=== PATIENT | female | born 1980 | race Caucasian/White ===

== ENCOUNTER 2018-09-30 13:23 | Emergency (ER) | payer OTHER ==
[~2018-09-30] VITALS: Ht 152.4 cm; Wt 108.0 kg
[~2018-09-30 13:23] MED LIST: CEPHALEXIN500 MG PO; NAPROSYN500 MG OR; NAPROXEN375 MG OR; NO CURRENT MEDS; PENICILLN VK500 MG OR; PENICILLN VK500 MG PO; PRAVASTATIN10 MG PO; PRINIVIL5 MG PO; VOLTAREN - GENE75 MG PO
[2018-09-30] MEDS ORDERED: NORCO1 TA1 PO (13:35)
[2018-09-30] MEDS ORDERED: CLINDAMYCIN300 M1 PO (13:35)
[2018-09-30] MEDS ORDERED: ZOFRAN ODT4 MG PO (13:47)
[2018-09-30 13:52] VITALS: BP 109/73
== END 2018-09-30 13:52 | disposition home or self-care (01) ==
LOC: ED 13:23
DX: K52.9 Noninfective gastroenteritis and colitis, unspecified (principal); R11.2 Nausea with vomiting, unspecified

== ENCOUNTER 2019-07-09 | Emergency (ER) | payer OTHER ==
[~2019-07-09] MED LIST changes: +CLINDAMYCIN300 M1 PO; +NORCO1 TA1 PO; +ZOFRAN ODT4 MG PO
[2019-07-09 03:20] LABS: HEMATOCRIT 43.3 % (37.0-47.0); IMMATURE GRANULOCYTES 0.2 % (0.0-5.0); MEAN CELL VOLUME 78.7 fL CALC (80.0-100.0); MEAN CORPUSCULAR HGB 27.3 pG CALC (26.0-32.0); MEAN CORPUSCULAR HGB CONC 34.6 g/L CALC (32.0-36.0); NEUT# 4.6 thou/uL (2.00-7.15); RED BLOOD COUNT 5.5 mill/uL (4.20-5.60); RED CELL DISTRI WIDTH 13.2 % (11.5-15.5)
[2019-07-09 03:21] LABS: URINE BILIRUBIN - DIPSTICK NEGATIVE (NEGATIVE); URINE BLOOD DIPSTICK NEGATIVE (NEGATIVE); URINE COLOR YELLOW; URINE GLUCOSE - DIPSTICK NEGATIVE (NEGATIVE); URINE KETONE NEGATIVE (NEGATIVE); URINE LEUK ESTERASE NEGATIVE (NEGATIVE); URINE NITRITE - DIPSTICK NEGATIVE (Negative); URINE PROTEIN - DIPSTICK NEGATIVE (NEG-TRACE); URINE SPECIFIC GRAVITY 1.015; URINE UROBILINOGEN - DIPSTICK 0.2 E.U./dL (0.2)
[2019-07-09 03:32] LABS: ALBUMIN 4.2 g/dL (3.2-5.0); ALKALINE PHOSPHATASE 83 u/l (38-126); AMYLASE 44 u/l (30-110); ANION GAP 16 (6-22 (CALC)); BILIRUBIN, TOTAL 0.5 mg/dL (0.0-1.4); BUN 10 mg/dL (7-17); BUN/CREATININE RATIO 13 (12-20 (CALC)); CARBON DIOXIDE 23 mmol/l (22-30); CHLORIDE 102 mmol/l (95-108); CREATININE 0.7 mg/dL (0.5-1.0); GFR > 60 ML/MIN (>=60 (CALC)); GFR FOR AFR.AMER. > 60 ML/MIN (>=60 (CALC)); LIPASE 193 u/l (23-300); SGOT/AST 53 u/l (14-36); SODIUM 137 mmol/l (137-146)
[2019-07-09] MEDS ORDERED: IMODIUM2 MG PO (06:10)
== END 2019-07-09 06:29 | disposition home or self-care (01) ==
PROVIDERS: Emergency Medicine
DX: R19.7 Diarrhea, unspecified (principal); I10 Essential (primary) hypertension
CPT/HCPCS: Q9967

== ENCOUNTER 2019-08-21 22:15 | Observation (INO) | payer OTHER ==
[~2019-08-21] VITALS: Ht 149.9 cm; Wt 114.0 kg
[~2019-08-21 22:15] MED LIST changes: +IMODIUM2 MG PO
[2019-08-21] MEDS ORDERED: BL ASPIRIN325 MG PO (22:42)
[2019-08-21 23:37] LABS: URINE BILIRUBIN - DIPSTICK NEGATIVE (NEGATIVE); URINE BLOOD DIPSTICK NEGATIVE (NEGATIVE); URINE COLOR YELLOW; URINE GLUCOSE - DIPSTICK NEGATIVE (NEGATIVE); URINE KETONE NEGATIVE (NEGATIVE); URINE LEUK ESTERASE NEGATIVE (NEGATIVE); URINE NITRITE - DIPSTICK NEGATIVE (Negative); URINE PH 6.5 (4.5-8.0); URINE PROTEIN - DIPSTICK NEGATIVE (NEG-TRACE); URINE SPECIFIC GRAVITY 1.025; URINE UROBILINOGEN - DIPSTICK 0.2 E.U./dL (0.2)
[2019-08-21 23:45] LABS: HEMOGLOBIN 15.6 g/dl (12.0-16.0); IMMATURE GRANULOCYTES 0.2 % (0.0-5.0); MEAN CELL VOLUME 79.7 fL CALC (80.0-100.0); MEAN CORPUSCULAR HGB CONC 33.9 g/L CALC (32.0-36.0); NEUT# 4.74 thou/uL (2.00-7.15); RED BLOOD COUNT 5.77 mill/uL (4.20-5.60); RED CELL DISTRI WIDTH 13.2 % (11.5-15.5)
[2019-08-21 23:56] LABS: ALBUMIN 4.3 g/dL (3.2-5.0); ALKALINE PHOSPHATASE 79 u/l (38-126); ANION GAP 13 (6-22 (CALC)); BILIRUBIN, TOTAL 0.5 mg/dL (0.0-1.4); BUN 12 mg/dL (7-17); BUN/CREATININE RATIO 18 (12-20 (CALC)); CARBON DIOXIDE 26 mmol/l (22-30); CHLORIDE 100 mmol/l (95-108); CREATININE 0.7 mg/dL (0.5-1.0); GFR > 60 ML/MIN (>=60 (CALC)); GFR FOR AFR.AMER. > 60 ML/MIN (>=60 (CALC)); POTASSIUM 4.2 mmol/l (3.5-5.1); SGOT/AST 44 u/l (14-36); SODIUM 135 mmol/l (137-146)
[2019-08-22 00:08] LABS: MYOGLOBIN 42 ng/mL (0 - 62)
[2019-08-22 01:45] VITALS: BP 135/76
[2019-08-22 04:00] VITALS: BP 140/76
[2019-08-22 07:00] VITALS: BP 110/68
[2019-08-22 09:27] LABS: CHOLESTEROL HDL RATIO 7.7 (<4.4 (CALC))
[2019-08-22 09:35] VITALS: BP 129/75
[2019-08-22] MEDS ORDERED: LEVOTHYROXIN25 MC1 PO (10:23)
[2019-08-22] MEDS ORDERED: METFORMIN500 MG PO (10:23)
[2019-08-22] MEDS ORDERED: LIPITOR10 M1 PO (10:32)
== END 2019-08-22 10:55 | disposition home or self-care (01) ==
LOC: ED 22:15 → ED-I 23:24 → ED 23:24 → ED-I 23:26 → ED 08-22 00:52 → ICU 08-22 00:53
PROVIDERS: Emergency Medicine; Internal Medicine; ADMIT Internal Medicine; ATTEND Internal Medicine
DX: R07.89 Other chest pain (principal); I10 Essential (primary) hypertension; G47.33 Obstructive sleep apnea (adult) (pediatric); E11.9 Type 2 diabetes mellitus without complications; E66.9 Obesity, unspecified; Z68.43 Body mass index [BMI] 50.0-59.9, adult

== ENCOUNTER 2020-05-19 17:56 | Emergency (ER) | payer OTHER ==
[~2020-05-19] VITALS: Ht 149.9 cm; Wt 120.0 kg
[~2020-05-19 17:56] MED LIST changes: +BL ASPIRIN325 MG PO; +LEVOTHYROXIN25 MC1 PO; +LIPITOR10 M1 PO; +METFORMIN500 MG PO
[2020-05-19 18:10] VITALS: BP 127/82
== END 2020-05-19 19:57 | disposition home or self-care (01) ==
LOC: ED 17:56
DX: U07.1 COVID-19 (principal); I10 Essential (primary) hypertension

== ENCOUNTER 2021-04-03 22:09 | Emergency (ER) | payer OTHER ==
[~2021-04-03] VITALS: Ht 149.9 cm; Wt 115.0 kg
[2021-04-03] MEDS ORDERED: METFORMIN HYDR500 MG PO (22:54)
[2021-04-03] MEDS ORDERED: LEVOTHYROXIN25 MC1 PO (22:55)
[2021-04-03 23:00] VITALS: BP 118/74
== END 2021-04-03 23:04 | disposition home or self-care (01) ==
LOC: ED 22:09
DX: S61.411A Laceration without foreign body of right hand, initial encounter (principal); I10 Essential (primary) hypertension; E78.00 Pure hypercholesterolemia, unspecified; W26.8XXA Contact with other sharp object(s), not elsewhere classified, initial encounter; Y93.G3 Activity, cooking and baking; Y92.000 Kitchen of unspecified non-institutional (private) residence as the place of occurrence of the external cause

== ENCOUNTER 2022-09-02 22:26 | Emergency (ER) | payer OTHER ==
[~2022-09-02] VITALS: Ht 149.9 cm; Wt 113.0 kg
[~2022-09-02 22:26] MED LIST changes: +METFORMIN HYDR500 MG PO; +PROAIR HFA108 MCG/AC
[2022-09-02 23:14] VITALS: BP 120/73
[2022-09-02 23:15] VITALS: BP 113/59
[2022-09-02 23:49] LABS: URINE BILIRUBIN - DIPSTICK NEGATIVE (NEGATIVE); URINE BLOOD DIPSTICK NEGATIVE (NEGATIVE); URINE COLOR YELLOW; URINE GLUCOSE - DIPSTICK >=1000 mg/dL (NEGATIVE); URINE KETONE NEGATIVE (NEGATIVE); URINE LEUK ESTERASE NEGATIVE (NEGATIVE); URINE PROTEIN - DIPSTICK NEGATIVE (NEG-TRACE); URINE SPECIFIC GRAVITY 1.015; URINE UROBILINOGEN - DIPSTICK 0.2 E.U./dL (0.2)
[2022-09-02 23:54] LABS: URINE NITRITE - DIPSTICK NEGATIVE (Negative)
[2022-09-03] LABS: ANION GAP 13 (6-22 (CALC)); BUN 11 mg/dL (7-17); BUN/CREATININE RATIO 18 (12-20 (CALC)); CARBON DIOXIDE 26 mmol/l (22-30); CHLORIDE 98 mmol/l (95-108); CREATININE 0.6 mg/dL (0.5-1.0); GFR FOR AFR.AMER. > 60 ML/MIN (>=60 (CALC)); GFR OTHER RACES > 60 ML/MIN (>=60 (CALC)); SODIUM 133 mmol/l (137-146)
[2022-09-03] MEDS ORDERED: METFORMIN HCL1000 MG PO (00:17)
[2022-09-03] MEDS ORDERED: INVOKANA100 MG PO (00:17)
[2022-09-03 00:27] VITALS: BP 120/73
== END 2022-09-03 00:46 | disposition home or self-care (01) ==
LOC: ED 22:26
PROVIDERS: Family Medicine
DX: E11.65 Type 2 diabetes mellitus with hyperglycemia (principal); I10 Essential (primary) hypertension; Z79.84 Long term (current) use of oral hypoglycemic drugs

== ENCOUNTER 2022-11-11 21:25 | Observation (INO) | payer OTHER ==
[~2022-11-11] VITALS: Ht 149.9 cm; Wt 110.8 kg
[~2022-11-11 21:25] MED LIST changes: +INVOKANA100 MG PO; +METFORMIN HCL1000 MG PO
[2022-11-11 21:46] VITALS: BP 118/64
[2022-11-11 22:01] VITALS: BP 105/50
[2022-11-11 22:31] VITALS: BP 109/58
[2022-11-11 22:31] LABS: BASO% 0.5 % (0-3); EOS% 2.3 % (0-8); HEMATOCRIT 42.8 % (37.0-47.0); HEMOGLOBIN 14.3 g/dl (12.0-16.0); IMMATURE GRANULOCYTES 0.1 % (0.0-5.0); LYMPH% 35.8 % (15-41); MEAN CELL VOLUME 77.7 fL CALC (80.0-100.0); MEAN CORPUSCULAR HGB CONC 33.4 g/dL CAL (32.0-36.0); MONO% 6.1 % (2-13); NEUT# 5.03 thou/uL (2.00-7.15); NEUT% 55.2 % (42-76); RED BLOOD COUNT 5.51 mill/uL (4.20-5.60); RED CELL DISTRI WIDTH 13.3 % (11.5-15.5)
[2022-11-11 22:43] LABS: ALBUMIN 4.1 g/dL (3.2-5.0); ALKALINE PHOSPHATASE 72 u/l (38-126); ANION GAP 15 (6-22 (CALC)); BILIRUBIN, TOTAL 0.3 mg/dL (0.02-1.3); BUN 13 mg/dL (7-17); BUN/CREATININE RATIO 17 (12-20 (CALC)); CARBON DIOXIDE 23 mmol/l (22-30); CHLORIDE 102 mmol/l (95-108); CREATININE 0.8 mg/dL (0.5-1.0); GFR FOR AFR.AMER. > 60 ML/MIN (>=60 (CALC)); GFR OTHER RACES > 60 ML/MIN (>=60 (CALC)); SGOT/AST 31 u/l (14-36); SODIUM 136 mmol/l (137-146); TOTAL PROTEIN 6.9 g/dL (6.3-8.2)
[2022-11-11 23:01] VITALS: BP 102/43
[2022-11-11 23:50] VITALS: BP 107/61
[2022-11-12] VITALS: BP 117/63
[2022-11-12 00:41] VITALS: BP 134/63
[2022-11-12 07:40] VITALS: BP 111/66
[2022-11-12 11:17] VITALS: BP 78/37
[2022-11-12 11:22] VITALS: BP 120/69
[2022-11-12 11:38] LABS: CHOLESTEROL HDL RATIO 6.5 (<4.4 (CALC))
== END 2022-11-12 13:45 | disposition home or self-care (01) ==
LOC: ED 21:25 → ED-I 23:30 → ED 11-12 00:03 → MS2 11-12 00:04
PROVIDERS: Emergency Medicine; Internal Medicine; ADMIT Internal Medicine; ATTEND Internal Medicine
DX: R07.9 Chest pain, unspecified (principal); I10 Essential (primary) hypertension; E11.65 Type 2 diabetes mellitus with hyperglycemia; E66.9 Obesity, unspecified; E03.9 Hypothyroidism, unspecified; E78.5 Hyperlipidemia, unspecified; G47.30 Sleep apnea, unspecified; Z79.84 Long term (current) use of oral hypoglycemic drugs
CPT/HCPCS: G0378

== ENCOUNTER 2023-01-26 00:33 | Emergency (ER) | payer OTHER ==
[~2023-01-26] VITALS: Ht 149.9 cm; Wt 109.0 kg
[2023-01-26 01:02] VITALS: BP 113/58
[2023-01-26 01:45] LABS: BASO% 0.5 % (0-3); HEMATOCRIT 41.7 % (37.0-47.0); IMMATURE GRANULOCYTES 0.1 % (0.0-5.0); LYMPH% 23.7 % (15-41); MEAN CELL VOLUME 77.5 fL CALC (80.0-100.0); MEAN CORPUSCULAR HGB CONC 33.6 g/dL CAL (32.0-36.0); MONO% 10.7 % (2-13); NEUT# 4.88 thou/uL (2.00-7.15); RED BLOOD COUNT 5.38 mill/uL (4.20-5.60)
[2023-01-26 01:48] LABS: HCG SERUM/URINE (NEG/POS) NEGATIVE (NEGATIVE)
[2023-01-26 01:57] LABS: ALBUMIN 3.8 g/dL (3.2-5.0); ALKALINE PHOSPHATASE 75 u/l (38-126); ANION GAP 15 (6-22 (CALC)); BUN 9 mg/dL (7-17); BUN/CREATININE RATIO 12 (12-20 (CALC)); CARBON DIOXIDE 21 mmol/l (22-30); CHLORIDE 105 mmol/l (95-108); CREATININE 0.7 mg/dL (0.5-1.0); GFR FOR AFR.AMER. > 60 ML/MIN (>=60 (CALC)); GFR OTHER RACES > 60 ML/MIN (>=60 (CALC)); POTASSIUM 3.9 mmol/l (3.5-5.1); SGOT/AST 39 u/l (14-36); SODIUM 136 mmol/l (137-146)
[2023-01-26 01:58] LABS: BILIRUBIN, TOTAL 0.5 mg/dL (0.02-1.3)
[2023-01-26] MEDS ORDERED: PAXLOVID PO (02:51)
[2023-01-26 03:05] VITALS: BP 110/60
== END 2023-01-26 03:20 | disposition home or self-care (01) ==
LOC: ED 00:33
PROVIDERS: Family Medicine
DX: U07.1 COVID-19 (principal); R50.9 Fever, unspecified; R09.81 Nasal congestion; R07.81 Pleurodynia; I10 Essential (primary) hypertension; E11.9 Type 2 diabetes mellitus without complications; E03.9 Hypothyroidism, unspecified; E78.00 Pure hypercholesterolemia, unspecified; Z79.84 Long term (current) use of oral hypoglycemic drugs

== ENCOUNTER 2024-02-20 12:43 | Emergency (ER) | payer SELFPAY ==
[~2024-02-20] VITALS: Ht 149.9 cm; Wt 100.0 kg
[~2024-02-20 12:43] MED LIST changes: +ACYCLOVIR800 MG PO; +ANTI-DIARRHE2 M1 PO; +CORTISPORIN OTI10 ML AD; +PAXLOVID PO; +PROMETHAZINE HY25 M1 PO; +ZOFRAN4 MG/TAB PO
[2024-02-20 12:54] VITALS: BP 143/86
[2024-02-20 13:00] VITALS: BP 126/77
[2024-02-20 13:15] VITALS: BP 121/67
[2024-02-20] MEDS ORDERED: PROAIR RES108 MCG/AC PO (13:23)
[2024-02-20 13:30] VITALS: BP 133/77
[2024-02-20 13:45] VITALS: BP 133/78
[2024-02-20 14:10] VITALS: BP 133/78
== END 2024-02-20 14:12 | disposition home or self-care (01) | DRG 179 ==
LOC: ED 12:43
DX: U07.1 COVID-19 (principal); R50.9 Fever, unspecified; R05.9 Cough, unspecified; R51.9 Headache, unspecified; M79.10 Myalgia, unspecified site; R09.81 Nasal congestion; I10 Essential (primary) hypertension; E11.9 Type 2 diabetes mellitus without complications; E03.9 Hypothyroidism, unspecified; E78.00 Pure hypercholesterolemia, unspecified; Z79.84 Long term (current) use of oral hypoglycemic drugs

== ENCOUNTER 2024-06-28 19:36 | Emergency (ER) | payer SELFPAY ==
[2024-06-28] VITALS (7 sets, daily range): BP systolic 86–123; BP diastolic 48–71
[~2024-06-28] VITALS: Ht 149.9 cm; Wt 108.0 kg
[~2024-06-28 19:36] MED LIST changes: +METRONIDAZOLE500 MG PO; +PROAIR RES108 MCG/AC PO; +VIBRAMYCIN100 M2 PO
[2024-06-28] MEDS ORDERED: TAM75CAP PO (20:40)
[2024-06-28] MEDS ORDERED: DEXAMETHASONE 2 MG/TAB TAB PO ONE (20:40)
[2024-06-28] MEDS ORDERED: BENZONATATE 200 MG/CAP PO ONE (20:40)
[2024-06-28] MEDS ORDERED: OSELTAMIVIR PHOSPHATE 75 MG/TAB CAP PO ONE (20:40)
[2024-06-28] MEDS ORDERED: BENZONATATE200 MG PO (20:40)
[2024-06-28] MEDS ORDERED: DECADRON4 MG PO (20:40)
== END 2024-06-28 21:57 | disposition home or self-care (01) | DRG 153 ==
LOC: ED 19:36
DX: J11.1 Influenza due to unidentified influenza virus with other respiratory manifestations (principal)